=== PATIENT | female | born 1990 | race Caucasian/White ===

== ENCOUNTER 2024-10-26 14:09 | Outpatient (CLI) | payer OTHER | END 2024-10-26 15:28 | disposition home or self-care (01) | LOC: NST 14:09 | PROVIDERS: ATTEND Obstetrics & Gynecology Gynecology | DX: Z34.83 Encounter for supervision of other normal pregnancy, third trimester (principal) ==

== ENCOUNTER 2024-11-30 11:24 | Outpatient (CLI) | payer OTHER | END 2024-11-30 12:09 | disposition home or self-care (01) | LOC: NST 11:24 | PROVIDERS: ATTEND Obstetrics & Gynecology Maternal & Fetal Medicine | DX: Z34.83 Encounter for supervision of other normal pregnancy, third trimester (principal) ==

== ENCOUNTER 2024-11-30 14:45 | Inpatient (IN) | payer OTHER ==
[~2024-11-30] VITALS: Ht 160 cm; Wt 3.2 kg
[2024-12-07] MEDS ORDERED: LABETALOL HCL200 MG PO (13:18)
[2024-12-07 13:48] LABS: BASO % 0.3 % (0.1-1.2); EOS # 0.18 (0.04-0.54); EOS % 2.3 % (0.7-7.0); LYMPH # 1.23 (1.18-3.74); LYMPH % 15.9 % (19.3-53.1); MEAN PLATELET VOLUME 10.00 fl (9.4-12.4); MONO # 0.62 (0.24-0.82); MONO % 8.0 % (4.7-12.5); NEUT # 5.67 (1.56-6.13); NEUT % 73.0 % (34.0-71.1); RED CELL DISTRIBUTION WIDTH 13.5 % (11.6-14.4)
[2024-12-07 14:08] LABS: INR < 0.93
[2024-12-07 14:31] LABS: ALT/SGPT 20.0 U/L (12-78); AST/SGOT 13.0 U/L (15-37); BILIRUBIN TOTAL 0.3 mg/dL (0.3-1.2); BUN CREA RATIO 13.0 (7.0-25.0); CREATININE SERUM 0.6 mg/dL (0.55-1.02); GFR 114.43; GLOBULINA 2.9 G/DL (2.4-3.5); GLUCOSE FASTING 93.0 mg/dL (65-100); OSMOLALITY SERUM 279.0 MOSM/KG (275-295)
[2024-12-11] MEDS ORDERED: HYDROXYZINE PAM25 MG PO (06:26)
[2024-12-11] MEDS ORDERED: OBSTETRIX DHA1 EAC1 PO (06:27)
[2024-12-11 08:20] VITALS: BP 124/83
[2024-12-11] MEDS ORDERED: MORPHINE SULFATE 4 MG/ML CARTRIDGE IV PRN (10:30)
[2024-12-11] MEDS ORDERED: RINGERS SOLUTION,LACTATED 1,000 ML IV SCH (10:30)
[2024-12-11] MEDS ORDERED: OXYTOCIN 1,000 ML IV ONE (10:45)
[2024-12-11] MEDS ORDERED: DOCUSATE SODIUM 100MG CAP PO SCH (12:00)
[2024-12-11] MEDS ORDERED: ERYTHROMYCIN BASE OPHT 1GM EACH TUBE OP ONE (12:00)
[2024-12-11] MEDS ORDERED: KETOROLAC TROMETHAMINE 30 MG VIAL IV SCH (12:00)
[2024-12-11] MEDS ORDERED: ONDANSETRON HCL 2 MG/ML VIAL IV SCH (12:00)
[2024-12-11] MEDS ORDERED: ACETAMINOPHEN 500 MG GEL..CAP PO SCH (12:00)
[2024-12-11] MEDS ORDERED: CEFAZOLIN SODIUM 1,000 MG VIAL IV ONE (12:00)
[2024-12-11 12:50] VITALS: BP 117/79
[2024-12-11 16:51] VITALS: BP 126/88
[2024-12-11] MEDS ORDERED: GABAPENTIN 300 MG CAPSULE PO SCH (17:00)
[2024-12-11] MEDS ORDERED: SIMETHICONE 125 MG CAPSULE PO SCH (17:00)
[2024-12-12] VITALS: BP 109/74
[2024-12-12 06:09] LABS: BASO % 0.6 % (0.1-1.2); EOS # 0.21 (0.04-0.54); EOS % 2.2 % (0.7-7.0); LYMPH # 1.56 (1.18-3.74); LYMPH % 16.4 % (19.3-53.1); MEAN PLATELET VOLUME 9.90 fl (9.4-12.4); MONO # 0.72 (0.24-0.82); MONO % 7.6 % (4.7-12.5); NEUT # 6.90 (1.56-6.13); NEUT % 72.7 % (34.0-71.1); RED CELL DISTRIBUTION WIDTH 13.5 % (11.6-14.4)
[2024-12-12] MEDS ORDERED: KETOROLAC TROMETHAMINE 10 MG TABLET PO SCH (08:00)
[2024-12-12] MEDS ORDERED: OxyCODONE HCL 5 MG TABLET (ROXICODONE) PO PRN (08:00)
[2024-12-12 08:31] VITALS: BP 120/85
[2024-12-12 17:25] VITALS: BP 103/69
[2024-12-13] VITALS: BP 112/68
[2024-12-13] MEDS ORDERED: OxyCODONE HCL 5 MG TABLET (ROXICODONE) PO PRN (06:00)
[2024-12-13 08:00] VITALS: BP 131/86
[2024-12-13 13:00] VITALS: BP 132/84
== END 2024-12-13 15:13 | disposition home or self-care (01) | DRG 788 ==
LOC: LDR 12-11 08:19 → OB/GYN 12-11 08:19 → LDR 12-11 10:18 → OB/GYN 12-11 11:46 → LDR 12-13 14:45 → OB/GYN 12-13 15:13
PROVIDERS: Obstetrics & Gynecology Maternal & Fetal Medicine; ADMIT Obstetrics & Gynecology; ATTEND Obstetrics & Gynecology
PROC: 4A1HXCZ Monitoring of Products of Conception, Cardiac Rate, External Approach (ICD-10-PCS; 2024-12-11)
PROC: 10D00Z1 Extraction of Products of Conception, Low, Open Approach (ICD-10-PCS; principal; 2024-12-11 08:00)
DX: O32.1XX0 Maternal care for breech presentation, not applicable or unspecified (principal); Z3A.39 39 weeks gestation of pregnancy; Z37.0 Single live birth

== ENCOUNTER 2024-12-11 06:01 | Outpatient (CLI) | payer OTHER ==
[2024-12-11 05:25] VITALS: BP 116/80
[~2024-12-11 06:01] MED LIST: LABETALOL HCL200 MG PO
[2024-12-11] MEDS ORDERED: RINGERS SOLUTION,LACTATED 1,000 ML IV SCH (06:15)
[2024-12-11] MEDS ORDERED: HYDROXYZINE PAM25 MG PO (06:26)
[2024-12-11] MEDS ORDERED: OBSTETRIX DHA1 EAC1 PO (06:27)
[2024-12-11 06:51] VITALS: BP 124/83; O2SAT 98
[2024-12-11 07:31] LABS: BASO % 0.5 % (0.1-1.2); EOS # 0.24 (0.04-0.54); EOS % 3.0 % (0.7-7.0); LYMPH # 1.66 (1.18-3.74); LYMPH % 20.8 % (19.3-53.1); MEAN PLATELET VOLUME 10.30 fl (9.4-12.4); MONO # 0.76 (0.24-0.82); MONO % 9.5 % (4.7-12.5); NEUT # 5.25 (1.56-6.13); NEUT % 65.6 % (34.0-71.1); RED CELL DISTRIBUTION WIDTH 13.4 % (11.6-14.4)
[2024-12-11 07:48] LABS: INR < 0.93
[2024-12-11 07:58] LABS: ALT/SGPT 15.0 U/L (12-78); AST/SGOT 13.0 U/L (15-37); BILIRUBIN TOTAL 0.2 mg/dL (0.3-1.2); BUN CREA RATIO 30.0 (7.0-25.0); CREATININE SERUM 0.43 mg/dL (0.55-1.02); GFR 168.08; GLOBULINA 2.7 G/DL (2.4-3.5); GLUCOSE FASTING 84.0 mg/dL (65-100); OSMOLALITY SERUM 282.0 MOSM/KG (275-295)
[2024-12-11] MEDS ORDERED: LABETALOL HCL 200 MG TABLET PO SCH (09:00)
== END 2024-12-11 08:18 | disposition still patient (30) ==
LOC: OBS/DEL 06:01
PROVIDERS: ATTEND Obstetrics & Gynecology
DX: O26.893 Other specified pregnancy related conditions, third trimester (principal)